=== PATIENT | male | born 1950 ===

== ENCOUNTER 2017-08-21 09:42 | Outpatient (CLI) | payer OTHER | END 2017-08-21 09:46 | disposition home or self-care (01) | LOC: NUCLEAR 09:42 | DX: I10 Essential (primary) hypertension (principal); Z01.810 Encounter for preprocedural cardiovascular examination ==

== ENCOUNTER 2017-08-28 06:00 | Day surgery (SDC) | payer OTHER | END 2017-08-28 10:20 | disposition home or self-care (01) | LOC: AMB-ENDOS 06:00 | DX: D12.8 Benign neoplasm of rectum (principal); K57.30 Diverticulosis of large intestine without perforation or abscess without bleeding ==

== ENCOUNTER → 2018-10-08 | Day surgery (SDC) | payer OTHER | END | disposition home or self-care (01) | LOC: ADM 10-04 13:00 → AMB-ENDOS 05:40 → ADM 13:00 | DX: K52.89 Other specified noninfective gastroenteritis and colitis (principal); K57.30 Diverticulosis of large intestine without perforation or abscess without bleeding ==